=== PATIENT | male | born 1990 | race Caucasian/White ===

== ENCOUNTER 2020-09-22 12:33 | Outpatient (CLI) | payer OTHER, SELFPAY ==
--- NOTE | 2020-09-22 12:46 | XRR_ITS ---
PROCEDURE INFORMATION: Exam: XR Lumbosacral Spine, 2 or 3 Views Exam date and time: 09/22/2020 12:51 PM Age: 30 years old Clinical indication: Pain and injury or trauma; Other: william back; Sprain or strain, lumbar ligaments; [place]; Injury date: 09/22/20 TECHNIQUE: Imaging protocol: XR of the lumbosacral spine, 2 or 3 views. COMPARISON: No relevant prior studies available. FINDINGS: Bones/joints: Mild osteoarthritis. No acute fracture. Normal alignment. Soft tissues: Metallic surgical clips right upper quadrant consistent with cholecystectomy XR/XR lumbar spine 2-3V* [id number] IMPRESSION: 1. No acute findings. 2. Mild lumbar spine osteoarthritis. 3. Status post cholecystectomy
== END 2020-09-22 12:34 | disposition home or self-care (01) ==
PROVIDERS: Visit Provider Nurse Practitioner
DX: M54.9 Dorsalgia, unspecified (principal); M47.816 Spondylosis without myelopathy or radiculopathy, lumbar region; Z90.49 Acquired absence of other specified parts of digestive tract
CPT/HCPCS: 72100

== ENCOUNTER → 2021-01-20 13:03 | Outpatient (BNVA) | payer SELFPAY | PROVIDERS: Visit Provider Nurse Practitioner | DX: J02.9 Acute pharyngitis, unspecified (principal); J01.90 Acute sinusitis, unspecified; B96.89 Other specified bacterial agents as the cause of diseases classified elsewhere | CPT/HCPCS: 87071; 87880 ==